=== PATIENT | male | born 1960 | race Caucasian/White ===

== ENCOUNTER 2016-12-17 01:10 | Inpatient (IN) | payer MEDICAID, OTHER ==
[~2016-12-17] VITALS: Ht 175.3 cm; Wt 68.9 kg
[~2016-12-17 01:10] MED LIST: FOLI1TAB2 PO; MULT1TAB10 PO; NICO14PA TD; OXAZ15CA PO; THIA100TA PO
[2016-12-17] MEDS ORDERED: CELE10TA PO (01:48)
[2016-12-17] MEDS ORDERED: BUPR15TA PO (01:48)
[2016-12-17 02:47] LABS: MEAN CORPUSCULAR HEMOGLOBIN 30.1 pg (27.0-33.0); MEAN CORPUSCULAR HGB CONC 34.3 g/dl (32.0-36.5); MEAN CORPUSCULAR VOLUME 87.7 fl (80.0-96.0); RED CELL DISTRIBUTION WIDTH 12.4 % (11.5-14.5); WHITE BLOOD COUNT 4.9 K/mm3 (4.0-10.0)
[2016-12-17 03:06] LABS: METHADONE URINE NEGATIVE (NEGATIVE)
[2016-12-17 03:15] LABS: ALBUMIN/GLOBULIN RATIO 1.33 (1.00-1.93); ALKALINE PHOSPHATASE 95 U/L (45-117); ALT/SGPT 64 U/L (12-78); ANION GAP 13 MEQ/L (8-16); AST/SGOT 49 U/L (15-37); BILIRUBIN,DIRECT 0.1 MG/DL (0.0-0.2); BILIRUBIN,TOTAL 0.3 MG/DL (0.2-1.0); BLOOD UREA NITROGEN 6 MG/DL (7-18); CALCIUM LEVEL 8.1 MG/DL (8.5-10.1); CARBON DIOXIDE LEVEL 27 MEQ/L (21-32); CHLORIDE LEVEL 105 MEQ/L (98-107); GLOMERULAR FILTRATION RATE > 60.0 (>56); GLUCOSE, FASTING 88 MG/DL (70-105); POTASSIUM SERUM 3.8 MEQ/L (3.5-5.1); SODIUM LEVEL 145 MEQ/L (136-145)
[2016-12-17] MEDS ORDERED: OXAZEPAM 15 MG CAP PO ONE (12:30)
[2016-12-17] MEDS ORDERED: BUPR150T3 PO (14:46)
[2016-12-17 18:33] VITALS: BP 139/78
[2016-12-17] MEDS ORDERED: MOM 30ML SUSPENSION UDC PO PRN (19:30)
[2016-12-17] MEDS ORDERED: MAALOX 30 ML SUSP *UDC PO PRN (19:30)
[2016-12-17] MEDS: THIAMINE 100 MG TAB PO SCH (21:29)
[2016-12-17] MEDS: buPROPion **XL** TABLET 150MG (WELLBUTRIN XL) PO SCH (21:29)
[2016-12-18 06:41] VITALS: BP 144/88
[2016-12-18] MEDS: FOLIC ACID 1 MG TAB PO SCH (08:44)
[2016-12-18] MEDS: CitaloPRAM (CeleXA) 20 MG TAB PO SCH (08:44)
[2016-12-18] MEDS: MULTIVITAMINS/MINERALS THERAP 1 TAB PO SCH (08:44)
[2016-12-18] MEDS: NICOTINE 21MG/24HR 1 EA TRANSDERMAL TD SCH (08:44)
[2016-12-18] MEDS: THIAMINE 100 MG TAB PO SCH ×2 (08:44→20:41)
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
[2016-12-18 14:55] VITALS: BP 166/84
[2016-12-18] MEDS: LORazepam 2 MG TAB PO PRN ×2 (14:58→21:05)
[2016-12-18 18:18] VITALS: BP 140/82
[2016-12-18] MEDS: buPROPion **XL** TABLET 150MG (WELLBUTRIN XL) PO SCH (20:41)
[2016-12-18 21:00] VITALS: BP 138/93
[2016-12-19 06:18] VITALS: BP 153/86
--- NOTE | 2016-12-19 07:17 | ECGEPIP ---
Stationary ECG Study [facility] Test Date: 2016-12-18 Pat Name: CODY JONES Department: Room: [place] [address] Gender: M [employer] Driver: DEBBIE : 1960 Requested By: Katelyn Mckeon Order Number: [id number] Reading MD: Tao Fenotn Measurements Intervals [place] Rate: 81 P: 77 IA: 129 QRS: 78 QRSD: 78 T: 82 QT: 363 QTc: 423 Interpretive Statements Normal sinus rhythm Incomplete right bundle branch block No significant change when compared to prior tracing of 07/14/2016 Electronically Signed On 12-19-2016 7:16:50 EDT by Tao Fenton
[2016-12-19 07:33] LABS: ALBUMIN 3.5 GM/DL (3.2-5.2); ALKALINE PHOSPHATASE 83 U/L (45-117); ALT/SGPT 42 U/L (12-78); ANION GAP 4 MEQ/L (8-16); AST/SGOT 24 U/L (15-37); BILIRUBIN,TOTAL 0.9 MG/DL (0.2-1.0); BLOOD UREA NITROGEN 16 MG/DL (7-18); CALCIUM LEVEL 8.8 MG/DL (8.5-10.1); CARBON DIOXIDE LEVEL 31 MEQ/L (21-32); CHLORIDE LEVEL 105 MEQ/L (98-107); CREATININE FOR GFR 0.76 MG/DL (0.70-1.30); GLOMERULAR FILTRATION RATE > 60.0 (>56); GLUCOSE, FASTING 94 MG/DL (70-105); SODIUM LEVEL 140 MEQ/L (136-145); TOTAL PROTEIN 6.2 GM/DL (6.4-8.2)
[2016-12-19] MEDS: CitaloPRAM (CeleXA) 20 MG TAB PO SCH (08:47)
[2016-12-19] MEDS: FOLIC ACID 1 MG TAB PO SCH (08:47)
[2016-12-19] MEDS: MULTIVITAMINS/MINERALS THERAP 1 TAB PO SCH (08:47)
[2016-12-19] MEDS: THIAMINE 100 MG TAB PO SCH ×2 (08:47→21:33)
[2016-12-19] MEDS: NICOTINE 21MG/24HR 1 EA TRANSDERMAL TD SCH (08:47)
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
[2016-12-19 18:00] VITALS: BP 144/74
[2016-12-19] MEDS: traZODone 50 MG TAB PO PRN (21:33)
[2016-12-19] MEDS: buPROPion **XL** TABLET 150MG (WELLBUTRIN XL) PO SCH (21:33)
[2016-12-20 06:15] VITALS: BP 138/78
[2016-12-20] MEDS: FOLIC ACID 1 MG TAB PO SCH (08:16)
[2016-12-20] MEDS: CitaloPRAM (CeleXA) 20 MG TAB PO SCH (08:16)
[2016-12-20] MEDS: MULTIVITAMINS/MINERALS THERAP 1 TAB PO SCH (08:16)
[2016-12-20] MEDS: THIAMINE 100 MG TAB PO SCH (08:16)
[2016-12-20] MEDS: NICOTINE 21MG/24HR 1 EA TRANSDERMAL TD SCH (08:16)
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
[2016-12-20 18:00] VITALS: BP 132/73
[2016-12-20] MEDS: traZODone 50 MG TAB PO PRN (21:38)
[2016-12-20] MEDS: buPROPion **XL** TABLET 150MG (WELLBUTRIN XL) PO SCH (21:38)
[2016-12-21 06:31] VITALS: BP 120/67
[2016-12-21 09:00] VITALS: BP 126/70
[2016-12-21] MEDS: FOLIC ACID 1 MG TAB PO SCH (09:09)
[2016-12-21] MEDS: CitaloPRAM (CeleXA) 20 MG TAB PO SCH (09:09)
[2016-12-21] MEDS: NICOTINE 21MG/24HR 1 EA TRANSDERMAL TD SCH (09:09)
[2016-12-21] MEDS: MULTIVITAMINS/MINERALS THERAP 1 TAB PO SCH (09:09)
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
[2016-12-21] MEDS: buPROPion **XL** TABLET 150MG (WELLBUTRIN XL) PO SCH (21:40)
[2016-12-21] MEDS: traZODone 50 MG TAB PO PRN (21:57)
[2016-12-22 06:29] VITALS: BP 127/102
[2016-12-22 06:34] VITALS: BP 127/62
[2016-12-22] MEDS: NICOTINE 21MG/24HR 1 EA TRANSDERMAL TD SCH (08:26)
[2016-12-22] MEDS: FOLIC ACID 1 MG TAB PO SCH (08:26)
[2016-12-22] MEDS: MULTIVITAMINS/MINERALS THERAP 1 TAB PO SCH (08:27)
[2016-12-22] MEDS: CitaloPRAM (CeleXA) 20 MG TAB PO SCH (08:27)
[2016-12-22 18:00] VITALS: BP 118/63
[2016-12-22 21:00] VITALS: BP 120/72
[2016-12-22] MEDS: buPROPion **XL** TABLET 150MG (WELLBUTRIN XL) PO SCH (21:41)
[2016-12-22] MEDS: traZODone 50 MG TAB PO PRN (21:42)
[2016-12-23 06:34] VITALS: BP 112/57
[2016-12-23] MEDS: MULTIVITAMINS/MINERALS THERAP 1 TAB PO SCH (09:08)
[2016-12-23] MEDS: FOLIC ACID 1 MG TAB PO SCH (09:08)
[2016-12-23] MEDS: NICOTINE 21MG/24HR 1 EA TRANSDERMAL TD SCH (09:08)
[2016-12-23] MEDS: CitaloPRAM (CeleXA) 20 MG TAB PO SCH (09:09)
[2016-12-23 11:49] VITALS: BP 119/65
[2016-12-23 18:00] VITALS: BP 112/69
[2016-12-23] MEDS: buPROPion **XL** TABLET 150MG (WELLBUTRIN XL) PO SCH (21:46)
[2016-12-23] MEDS: traZODone 50 MG TAB PO PRN (21:46)
[2016-12-24 06:45] VITALS: BP 115/70
[2016-12-24] MEDS: MULTIVITAMINS/MINERALS THERAP 1 TAB PO SCH (08:47)
[2016-12-24] MEDS: FOLIC ACID 1 MG TAB PO SCH (08:47)
[2016-12-24] MEDS: NICOTINE 21MG/24HR 1 EA TRANSDERMAL TD SCH (08:47)
[2016-12-24] MEDS: CitaloPRAM (CeleXA) 20 MG TAB PO SCH (08:47)
[2016-12-24 10:08] VITALS: BP 115/70
[2016-12-24] MEDS: TRIAMCINOLONE ACET 0.1% CREAM 80 GM TOP SCH ×2 (10:10→21:09)
[2016-12-24] MEDS: IBUPROFEN 400 MG TAB PO PRN (11:50)
[2016-12-24 12:02] VITALS: BP 123/71
[2016-12-24] MEDS ORDERED: CitaloPRAM (CeleXA) 10 MG TABLET PO ONE (14:15)
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
[2016-12-24 18:00] VITALS: BP 130/77
[2016-12-24] MEDS: buPROPion **XL** TABLET 150MG (WELLBUTRIN XL) PO SCH (21:09)
[2016-12-24] MEDS: traZODone 50 MG TAB PO PRN (21:10)
[2016-12-25 06:13] VITALS: BP 122/56
[2016-12-25] MEDS: CitaloPRAM (CeleXA) 10 MG TABLET PO SCH (08:44)
[2016-12-25] MEDS: MULTIVITAMINS/MINERALS THERAP 1 TAB PO SCH (08:44)
[2016-12-25] MEDS: FOLIC ACID 1 MG TAB PO SCH (08:44)
[2016-12-25] MEDS: TRIAMCINOLONE ACET 0.1% CREAM 80 GM TOP SCH ×2 (08:45→20:34)
[2016-12-25] MEDS: NICOTINE 21MG/24HR 1 EA TRANSDERMAL TD SCH (08:46)
[2016-12-25 12:00] VITALS: BP 120/70
[2016-12-25] MEDS ORDERED: BUPR150T3 PO (15:26)
[2016-12-25] MEDS ORDERED: CELE10TA PO (15:26)
[2016-12-25] MEDS ORDERED: TRAZO50TA PO (15:26)
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
[2016-12-25 18:00] VITALS: BP 117/67
[2016-12-25] MEDS: IBUPROFEN 400 MG TAB PO PRN (19:02)
[2016-12-25] MEDS: buPROPion **XL** TABLET 150MG (WELLBUTRIN XL) PO SCH (20:32)
[2016-12-25] MEDS: traZODone 50 MG TAB PO PRN (22:43)
[2016-12-26 06:14] VITALS: BP 109/59
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
[2016-12-26] MEDS: NICOTINE 21MG/24HR 1 EA TRANSDERMAL TD SCH (09:00)
[2016-12-26] MEDS: CitaloPRAM (CeleXA) 10 MG TABLET PO SCH (09:51)
[2016-12-26] MEDS: TRIAMCINOLONE ACET 0.1% CREAM 80 GM TOP SCH (09:51)
[2016-12-26] MEDS: MULTIVITAMINS/MINERALS THERAP 1 TAB PO SCH (09:52)
[2016-12-26] MEDS: FOLIC ACID 1 MG TAB PO SCH (09:52)
[2016-12-26] MEDS ORDERED: TRIA1CR80 TOP (10:56)
[2016-12-26] MEDS ORDERED: ADVI200C5 PO (10:58)
[2016-12-26] MEDS ORDERED: WELLTAB38 PO (11:43)
[2016-12-26] MEDS ORDERED: CELE10TA PO (11:45)
[2016-12-26] MEDS ORDERED: TRAZ100T4 PO (11:48)
== END 2016-12-26 12:15 | disposition home or self-care (01) | DRG 754 ==
LOC: EDBD 01:10 → M ED 11:06 → M ED INP 14:27 → M PSY 18:27
PROVIDERS: ADMIT Psychiatry & Neurology Psychiatry; ATTEND Psychiatry & Neurology Psychiatry
DX: F32.9 Major depressive disorder, single episode, unspecified (principal); Z91.14 Patient's other noncompliance with medication regimen; F41.9 Anxiety disorder, unspecified; F10.20 Alcohol dependence, uncomplicated; H54.8 Legal blindness, as defined in USA; Z91.013 Allergy to seafood; Z79.899 Other long term (current) drug therapy; Z63.0 Problems in relationship with spouse or partner

== ENCOUNTER 2017-03-15 19:04 | Inpatient (IN) | payer MEDICAID, OTHER ==
[~2017-03-15] VITALS: Ht 170.2 cm; Wt 73.6 kg
[~2017-03-15 19:04] MED LIST changes: +ADVI200C5 PO; +BUPR150T3 PO; +BUPR15TA PO; +CELE10TA PO; -FOLI1TAB2 PO; +FOLI1TAB4 PO; -OXAZ15CA PO; +OXAZ15CA4 PO; +TRAZ-136 PO; +TRAZO50TA PO; +TRIA1CR80 TOP; +WELLTAB38 PO
[2017-03-15 21:48] LABS: MEAN CORPUSCULAR HEMOGLOBIN 32.3 pg (27.0-33.0); MEAN CORPUSCULAR VOLUME 95.1 fl (80.0-96.0); RED CELL DISTRIBUTION WIDTH 15.7 % (11.5-14.5); WHITE BLOOD COUNT 2.8 K/mm3 (4.0-10.0)
[2017-03-15 22:04] LABS: METHADONE URINE NEGATIVE (NEGATIVE)
[2017-03-15 22:40] LABS: ALBUMIN 3.3 GM/DL (3.2-5.2); ALBUMIN/GLOBULIN RATIO 1.14 (1.00-1.93); ALKALINE PHOSPHATASE 178 U/L (45-117); ALT/SGPT 40 U/L (12-78); ANION GAP 11 MEQ/L (8-16); AST/SGOT 53 U/L (15-37); BILIRUBIN,DIRECT 0.1 MG/DL (0.0-0.2); BILIRUBIN,TOTAL 0.4 MG/DL (0.2-1.0); BLOOD UREA NITROGEN 6 MG/DL (7-18); CALCIUM LEVEL 7.8 MG/DL (8.5-10.1); CARBON DIOXIDE LEVEL 27 MEQ/L (21-32); CHLORIDE LEVEL 109 MEQ/L (98-107); CREATININE FOR GFR 0.75 MG/DL (0.70-1.30); GLOMERULAR FILTRATION RATE > 60.0 (>56); GLUCOSE, FASTING 134 MG/DL (70-105); POTASSIUM SERUM 3.4 MEQ/L (3.5-5.1); SODIUM LEVEL 147 MEQ/L (136-145); TOTAL PROTEIN 6.2 GM/DL (6.4-8.2)
[2017-03-15] MEDS ORDERED: POTASSIUM CHLORIDE 10 MEQ SR TABLET PO ONE (23:30)
[2017-03-16] MEDS ORDERED: OXAZEPAM 15 MG CAP PO ONE ×2 (10:30→15:30)
[2017-03-16] MEDS ORDERED: VITMTA PO (11:08)
--- NOTE | 2017-03-16 16:39 | ECGEPIP ---
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
[2017-03-16] MEDS ORDERED: SERTRALINE HCL 50 MG TAB PO SCH (21:00)
[2017-03-16] MEDS ORDERED: traZODone 50 MG TAB PO PRN (22:30)
[2017-03-16] MEDS ORDERED: ACETAMINOPHEN TAB 650MG DOSE (2X325MG) PO PRN (22:30)
[2017-03-16] MEDS ORDERED: MOM 30ML SUSPENSION UDC PO PRN (22:30)
[2017-03-16 23:15] VITALS: BP 173/95
[2017-03-16] MEDS ORDERED: hydrOXYzine 50 MG TAB PO PRN (23:15)
[2017-03-17] VITALS (7 sets, daily range): BP systolic 152–173; BP diastolic 78–95
[2017-03-17] MEDS: THIAMINE 100 MG TAB PO SCH ×3 (00:27→21:11)
[2017-03-17] MEDS: LORazepam 2 MG TAB PO PRN ×3 (00:27→16:20)
[2017-03-17] MEDS: MULTIVITAMINS/MINERALS THERAP 1 TAB PO SCH (09:37)
[2017-03-17] MEDS: FOLIC ACID 1 MG TAB PO SCH (09:37)
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
[2017-03-17] MEDS ORDERED: buPROPion **XL** TABLET 150MG (WELLBUTRIN XL) PO SCH (21:00)
[2017-03-18] VITALS (7 sets, daily range): BP systolic 135–172; BP diastolic 62–85
[2017-03-18] MEDS: LORazepam 2 MG TAB PO PRN (06:11)
[2017-03-18 07:22] LABS: BASO % 0.5 % (0.0-1.0); EOS # 0.1 K/mm3 (0.0-0.50); EOS % 1.3 % (0.0-3.0); LARGE UNSTAINED CELL # 0.1 K/mm3 (0.0-0.4); LYMPH # 1.1 K/mm3 (1.5-4.5); LYMPH % 21.4 % (24.0-44.0); MEAN CORPUSCULAR HEMOGLOBIN 32.1 pg (27.0-33.0); MEAN CORPUSCULAR HGB CONC 33.4 g/dl (32.0-36.5); MEAN CORPUSCULAR VOLUME 96.3 fl (80.0-96.0); MONO # 0.3 K/mm3 (0.0-0.8); MONO % 6.5 % (0.0-5.0); NEUTROPHILS # 3.6 K/mm3 (1.8-7.7); NEUTROPHILS % 68.4 % (36.0-66.0); PLATELET COUNT, AUTOMATED 156 k/mm3 (150-450); RED CELL DISTRIBUTION WIDTH 14.7 % (11.5-14.5); WHITE BLOOD COUNT 5.3 K/mm3 (4.0-10.0)
[2017-03-18 07:41] LABS: ALBUMIN 3.2 GM/DL (3.2-5.2); ALBUMIN/GLOBULIN RATIO 1.14 (1.00-1.93); ALKALINE PHOSPHATASE 134 U/L (45-117); ALT/SGPT 23 U/L (12-78); ANION GAP 7 MEQ/L (8-16); AST/SGOT 23 U/L (15-37); BILIRUBIN,TOTAL 0.7 MG/DL (0.2-1.0); BLOOD UREA NITROGEN 10 MG/DL (7-18); CALCIUM LEVEL 8.4 MG/DL (8.5-10.1); CARBON DIOXIDE LEVEL 28 MEQ/L (21-32); CHLORIDE LEVEL 101 MEQ/L (98-107); CREATININE FOR GFR 0.62 MG/DL (0.70-1.30); GLOMERULAR FILTRATION RATE > 60.0 (>56); GLUCOSE, FASTING 139 MG/DL (70-105); POTASSIUM SERUM 3.7 MEQ/L (3.5-5.1); SODIUM LEVEL 136 MEQ/L (136-145)
[2017-03-18] MEDS: CitaloPRAM (CeleXA) 10 MG TABLET PO SCH (09:23)
[2017-03-18] MEDS: FOLIC ACID 1 MG TAB PO SCH (09:24)
[2017-03-18] MEDS: MULTIVITAMINS/MINERALS THERAP 1 TAB PO SCH (09:24)
[2017-03-18] MEDS: THIAMINE 100 MG TAB PO SCH ×2 (09:24→20:05)
[2017-03-18] MEDS ORDERED: chlordiazePOXIDE 25 MG CAP PO PRN (10:30)
[2017-03-18] MEDS: chlordiazePOXIDE 25 MG CAP PO SCH ×3 (11:00→20:06)
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
--- NOTE | 2017-03-18 18:17 | IPN ---
DATE: 03/18/2017 56-year-old male with history of depression and alcohol dependency admitted for worsening depression and suicidal ideation. SUBJECTIVE: "I am very shaky and withdrawing." OBJECTIVE: The patient is experiencing withdrawal alcohol. The patient continues to be depressed and anxious. Says he has not been able to sleep at night. No evidence of psychotic symptoms. No auditory or visual hallucinations or delusions. MENTAL STATUS EXAMINATION: The patient is dressed in [facility]. The patient is partially cooperative. The patient has poor eye contact. Speech is slow and monotone. Mood is depressed and anxious. Affect is restricted and labile. No delusions or hallucinations. Memory, attention and concentration are impaired. The patient is reporting withdrawal symptoms from alcohol. Insight and judgment is poor. ASSESSMENT: 1. Alcohol dependency. 2. Alcohol withdrawal. 3. Depression. 4. Suicidal ideation. PLAN: 1. Discontinue Ativan. Start Librium 50 mg by mouth three times a day, plus as needed for alcohol withdrawal. 2. Continue thiamine, multivitamins and folic acid as per detox protocol. 3. Continue with Celexa 30 mg by mouth every morning. 4. Start trazodone 100 mg by mouth at bedtime (q.h.s.). 5. Continue medication management, individual and group therapy.
[2017-03-18] MEDS ORDERED: traZODone 100 MG TAB PO SCH (21:00)
[2017-03-19 06:33] VITALS: BP 130/74
[2017-03-19] MEDS: CitaloPRAM (CeleXA) 10 MG TABLET PO SCH (08:18)
[2017-03-19] MEDS: FOLIC ACID 1 MG TAB PO SCH (08:18)
[2017-03-19] MEDS: MULTIVITAMINS/MINERALS THERAP 1 TAB PO SCH (08:18)
[2017-03-19] MEDS: chlordiazePOXIDE 25 MG CAP PO SCH ×3 (08:18→20:41)
[2017-03-19] MEDS: THIAMINE 100 MG TAB PO SCH (08:18)
[2017-03-19 11:39] VITALS: BP 128/86
--- NOTE | 2017-03-19 16:16 | IPN ---
DATE: 03/19/2017 56-year-old male with history of depression and alcohol dependency admitted for significant symptoms of depression and suicidal ideation. SUBJECTIVE: "I cannot sleep at night." OBJECTIVE: Patient continues experiencing some alcohol withdrawal. Patient took a total of 400 mg of Librium yesterday to control the symptoms. Today he is less shaky. Patient is somewhat angry and frustrated. Patient is interacting very little with other patients and has a tendency to stay in the room. MENTAL STATUS EXAMINATION: Patient is dressed in [facility]. Patient was frustrated and angry. Poor eye contact. Speech is slow and monotone. Mood is depressed and anxious. Affect is restricted. No delusions or hallucinations. Memory, attention, and concentration are impaired. Patient continues to report withdrawal symptoms from alcohol. Insight and judgment is poor. ASSESSMENT: 1. Alcohol dependency. 2. Alcohol withdrawal. 3. Depression. 4. Suicidal ideation. PLAN: 1. Continue with Librium 50 mg by mouth three times a day plus as needed. 2. Continue thiamine, multivitamin, and folic acid as per detoxification protocol. 3. Continue Celexa 30 mg by mouth every morning. 4. Increase trazodone to 150 mg by mouth nightly. 5. Continue medication management, individual and group therapy.
[2017-03-19 18:19] VITALS: BP 114/61
[2017-03-19] MEDS: traZODone 50 MG TAB PO SCH (20:41)
[2017-03-20 06:34] VITALS: BP 116/57
[2017-03-20] MEDS: FOLIC ACID 1 MG TAB PO SCH (09:10)
[2017-03-20] MEDS: CitaloPRAM (CeleXA) 10 MG TABLET PO SCH (09:10)
[2017-03-20] MEDS: THIAMINE 100 MG TAB PO SCH (09:10)
[2017-03-20] MEDS: MULTIVITAMINS/MINERALS THERAP 1 TAB PO SCH (09:10)
[2017-03-20] MEDS: chlordiazePOXIDE 25 MG CAP PO SCH ×3 (09:10→21:03)
[2017-03-20 12:10] VITALS: BP 102/58
[2017-03-20 18:14] VITALS: BP 110/58
--- NOTE | 2017-03-20 19:00 | IPN ---
DATE: 03/20/2017 A 56-year-old male with a history of depression and alcohol dependency, admitted for suicidal ideation and significant symptoms of depression. SUBJECTIVE: "I'm still shaken up." OBJECTIVE: Patient is improving very slowly. His symptoms of alcohol withdrawal have been decreasing slowly with the help of Librium. Patient is able to sleep better with the increase of trazodone. No evidence of psychotic symptoms. Patient is irritable in the morning. MENTAL STATUS EXAMINATION: Patient dressed in [facility]. Patient continues somewhat angry and frustrated. Has poor eye contact. Speech is slow and monotone. Mood is depressed and anxious. Affect is restricted. No delusions or hallucinations. Memory, attention, and concentration are impaired. Patient continues to report withdrawal symptoms from alcohol. Insight and judgment are poor. ASSESSMENT: 1. Alcohol dependency. 2. Alcohol withdrawal. 3. Depression. 4. Suicidal ideation. PLAN: 1. Decrease Librium to 25 mg by mouth three times a day. 2. Continue thiamine, multivitamin, folic acid per detoxification protocol. 3. Continue Celexa 30 mg by mouth every morning. 4. Continue trazodone 150 mg by mouth at bedtime. 5. Continue medication management, individual and group therapy.
[2017-03-20 22:00] VITALS: BP 120/64
[2017-03-20] MEDS: traZODone 50 MG TAB PO SCH (22:45)
[2017-03-21 06:48] VITALS: BP 126/69
[2017-03-21] MEDS: FOLIC ACID 1 MG TAB PO SCH (08:40)
[2017-03-21] MEDS: chlordiazePOXIDE 25 MG CAP PO SCH ×2 (08:40→21:40)
[2017-03-21] MEDS: THIAMINE 100 MG TAB PO SCH (08:40)
[2017-03-21] MEDS: MULTIVITAMINS/MINERALS THERAP 1 TAB PO SCH (08:40)
[2017-03-21] MEDS: CitaloPRAM (CeleXA) 10 MG TABLET PO SCH (08:41)
--- NOTE | 2017-03-21 16:07 | IPN ---
DATE: 03/21/2017 56-year-old male with history of depression and alcohol dependency admitted to our unit for suicidal thoughts and significant symptoms of depression. SUBJECTIVE: "I'm still feeling shaky." OBJECTIVE: Patient was sleeping most of the morning and appears somewhat drowsy, however he continues with generalized tremors secondary to alcohol withdrawal. Patient says that he is sensitive and prone to withdrawal when he stops drinking. Patient has low insight into his chemical dependency. Patient continues depressed with sad, restricted facial expression. Patient is tolerating well the tapering of the Librium and the other psychotropic medications. No evidence of psychotic symptoms. Patient is able to contract for safety while in the hospital. MENTAL STATUS EXAMINATION: Patient is dressed in hospital [facility]. Patient continues somewhat angry and frustrated with limited eye contact. No interaction with other patients and staff. Patient is somewhat drowsy because of the medication, however he continues to have generalized tremor. Speech is slow and monotone. Affect is restricted. No delusions or hallucinations. Memory, attention, and concentration are impaired. Patient is able to contract for safety in our unit. Insight and judgment are poor. ASSESSMENT: 1. Alcohol dependency. 2. Alcohol withdrawal. 3. Depression. 4. Suicidal ideation. PLAN: 1. Decrease Librium to 25 mg by mouth twice a day. 2. Continue with thiamine, multivitamin, and folic acid per detoxification protocol. 3. Continue with Celexa 20 mg by mouth every morning. 4. Continue with trazodone 150 mg by mouth nightly. 5. Continue medication management, individual and group therapy.
[2017-03-21 18:00] VITALS: BP 131/71
[2017-03-21] MEDS: traZODone 50 MG TAB PO SCH (21:40)
[2017-03-22 06:00] VITALS: BP 133/76
[2017-03-22] MEDS: MULTIVITAMINS/MINERALS THERAP 1 TAB PO SCH (08:27)
[2017-03-22] MEDS: THIAMINE 100 MG TAB PO SCH (08:28)
[2017-03-22] MEDS: FOLIC ACID 1 MG TAB PO SCH (08:28)
[2017-03-22] MEDS: chlordiazePOXIDE 25 MG CAP PO SCH ×2 (08:28→21:06)
[2017-03-22] MEDS: CitaloPRAM (CeleXA) 10 MG TABLET PO SCH (08:29)
--- NOTE | 2017-03-22 15:44 | IPN ---
DATE: 03/22/2017 A 56-year-old male with history of depression and alcohol dependency, admitted to our unit for suicidal thoughts and significant symptoms of depression. SUBJECTIVE: "I could sleep better last night." OBJECTIVE: The patient continues somewhat confused for the amount of benzodiazepine that he is receiving; however, the tapering of Librium had to be very slow because of significant symptoms of withdrawal with tremors and altered vital signs. The patient is reporting depression, has psychomotor retardation, sad, restricted facial expression. The patient has very little interaction with other patients and staff, and has tendency to stay in his room most of the day. MENTAL STATUS EXAMINATION: The patient is dressed on [facility]. The patient is cooperative. Has poor eye contact. Speech is slow and monotone. Mood is depressed and anxious. Affect is restricted. No evidence of delusions or hallucinations. Memory, attention and concentration are impaired. Insight and judgment are poor. ASSESSMENT: 1. Depression. 2. Suicidal ideation. 3. Alcohol dependency. 4. Alcohol withdrawal. PLAN: 1. Decrease Librium to 25 mg by mouth at bedtime. 2. Continue thiamine, multivitamin, and folic acid per detox protocol. 3. Continue Celexa 20 mg by mouth every morning. 4. Continue trazodone 150 mg by mouth at bedtime. 5. Continue medication management, individual and group therapy.
[2017-03-22 18:29] VITALS: BP 118/76
[2017-03-22] MEDS: traZODone 50 MG TAB PO SCH (21:05)
[2017-03-23 06:23] VITALS: BP 134/63
[2017-03-23] MEDS: CitaloPRAM (CeleXA) 10 MG TABLET PO SCH (09:31)
[2017-03-23] MEDS: MULTIVITAMINS/MINERALS THERAP 1 TAB PO SCH (09:31)
[2017-03-23] MEDS: FOLIC ACID 1 MG TAB PO SCH (09:31)
[2017-03-23] MEDS: THIAMINE 100 MG TAB PO SCH (09:31)
[2017-03-23 18:00] VITALS: BP 117/61
[2017-03-23] MEDS: traZODone 50 MG TAB PO SCH (21:46)
[2017-03-23] MEDS: chlordiazePOXIDE 25 MG CAP PO SCH (21:46)
[2017-03-24 06:13] VITALS: BP 129/60
[2017-03-24] MEDS: THIAMINE 100 MG TAB PO SCH (08:57)
[2017-03-24] MEDS: CitaloPRAM (CeleXA) 10 MG TABLET PO SCH (08:57)
[2017-03-24] MEDS: FOLIC ACID 1 MG TAB PO SCH (08:57)
[2017-03-24] MEDS: MULTIVITAMINS/MINERALS THERAP 1 TAB PO SCH (08:57)
[2017-03-24] MEDS: POLYVINYL ALCOHOL OPHTH SOLN 15 ML(LIQUITEARS) OU PRN (14:57)
[2017-03-24 18:44] VITALS: BP 129/72
[2017-03-24] MEDS: traZODone 50 MG TAB PO SCH (21:46)
[2017-03-25 06:34] VITALS: BP 131/65
[2017-03-25] MEDS: MULTIVITAMINS/MINERALS THERAP 1 TAB PO SCH (08:41)
[2017-03-25] MEDS: CitaloPRAM (CeleXA) 10 MG TABLET PO SCH (08:41)
[2017-03-25] MEDS: THIAMINE 100 MG TAB PO SCH (08:41)
[2017-03-25] MEDS: FOLIC ACID 1 MG TAB PO SCH (08:41)
[2017-03-25] MEDS: POLYVINYL ALCOHOL OPHTH SOLN 15 ML(LIQUITEARS) OU PRN ×2 (09:27→16:09)
[2017-03-25] MEDS: TRIAMCINOLONE ACET 0.1% OINTMENT 15 GM TOP PRN (16:10)
[2017-03-25 18:12] VITALS: BP 136/65
[2017-03-25] MEDS: traZODone 50 MG TAB PO SCH (21:19)
--- NOTE | 2017-03-25 22:34 | IPN ---
DATE: 03/25/2017 56-year-old male with history of depression and alcohol dependency admitted to our unit for suicidal thoughts and significant symptoms of depression. SUBJECTIVE: "I feel much better." OBJECTIVE: Patient has improved from the withdrawal point of view, he is no longer shaking, he is now almost off the Librium. Patient is interacting with other patients and staff. Patient states that he feels less depressed, is able to contract for safety during the interview. Patient is motivated for treatment and to continue being sober after discharge from the hospital. Patient can now start working on the inpatient treatment program since his withdrawal is almost over. MENTAL STATUS EXAMINATION: Patient is dressed in [facility]. Patient is cooperative. Has fair eye contact. His speech is somewhat slow and monotone. Mood is depressed and anxious, but improved. Affect is somewhat restricted. No evidence of delusions or hallucinations. Memory, attention, and concentration are improving. Insight and judgment is also improved. ASSESSMENT: 1. Depression. 2. Suicidal ideation. 3. Alcohol dependency. PLAN: 1. Continue Celexa 20 mg by mouth every morning. 2. Continue trazodone 150 mg by mouth nightly. 3. Continue thiamine, multivitamin, and folic acid as per detoxification protocol. 4. Continue medication management, individual and group therapy.
[2017-03-26 06:23] VITALS: BP 106/66
[2017-03-26] MEDS: CitaloPRAM (CeleXA) 10 MG TABLET PO SCH (08:18)
[2017-03-26] MEDS: MULTIVITAMINS/MINERALS THERAP 1 TAB PO SCH (08:18)
[2017-03-26] MEDS: THIAMINE 100 MG TAB PO SCH (08:18)
[2017-03-26] MEDS: FOLIC ACID 1 MG TAB PO SCH (08:18)
[2017-03-26] MEDS: POLYVINYL ALCOHOL OPHTH SOLN 15 ML(LIQUITEARS) OU PRN ×2 (08:18→21:21)
[2017-03-26 18:00] VITALS: BP 129/70
[2017-03-26] MEDS: traZODone 50 MG TAB PO SCH (21:21)
[2017-03-27 06:59] VITALS: BP 129/56
[2017-03-27] MEDS: MAALOX 30 ML SUSP *UDC PO PRN ×2 (07:23→11:51)
[2017-03-27] MEDS: CitaloPRAM (CeleXA) 10 MG TABLET PO SCH (08:23)
[2017-03-27] MEDS: TRIAMCINOLONE ACET 0.1% OINTMENT 15 GM TOP PRN (08:23)
[2017-03-27] MEDS: POLYVINYL ALCOHOL OPHTH SOLN 15 ML(LIQUITEARS) OU PRN (08:23)
[2017-03-27] MEDS: FOLIC ACID 1 MG TAB PO SCH (08:23)
[2017-03-27] MEDS: THIAMINE 100 MG TAB PO SCH (08:23)
[2017-03-27] MEDS: MULTIVITAMINS/MINERALS THERAP 1 TAB PO SCH (08:23)
[2017-03-27 18:00] VITALS: BP 136/84
--- NOTE | 2017-03-27 21:52 | IPN ---
DATE: 03/27/2017 56-year-old male with a history of depression, alcohol dependency admitted to our unit for suicidal ideation and significant symptoms of depression. SUBJECTIVE: "I don't feel well today." The patient has significantly improved from his withdrawal symptoms. He is now able to participate in psychotherapeutic activities. The patient reports depression, mood swings and intermittent suicidal thoughts, however, he also agrees that he has improved significantly. The patient continues with low insight into his illness. MENTAL STATUS EXAMINATION: The patient is dressed in [facility]. The patient is cooperative. Has fair eye contact. Speech is soft and monotone. Mood is depressed and anxious today. Affect is restricted. No delusions or hallucinations. Memory, attention and concentration are fair. Insight and judgment limited. ASSESSMENT: 1. Depression. 2. Suicidal ideation. 3. Alcohol dependency. PLAN: 1. Continue Celexa 20 mg by mouth in the morning. 2. Continue trazodone 150 mg by mouth at night. 3. Continue thiamine, multivitamin, and folic acid as per detox protocol. 4. Continue medication management, individual and group therapy.
[2017-03-27] MEDS: traZODone 50 MG TAB PO SCH (22:01)
[2017-03-28 06:28] VITALS: BP 107/57
[2017-03-28] MEDS: THIAMINE 100 MG TAB PO SCH (08:03)
[2017-03-28] MEDS: CitaloPRAM (CeleXA) 10 MG TABLET PO SCH (08:03)
[2017-03-28] MEDS: FOLIC ACID 1 MG TAB PO SCH (08:03)
[2017-03-28] MEDS: MULTIVITAMINS/MINERALS THERAP 1 TAB PO SCH (08:03)
[2017-03-28] MEDS: POLYVINYL ALCOHOL OPHTH SOLN 15 ML(LIQUITEARS) OU PRN (08:05)
[2017-03-28] MEDS: TRIAMCINOLONE ACET 0.1% OINTMENT 15 GM TOP PRN (08:05)
[2017-03-28] MEDS ORDERED: CELE10TA PO (09:24)
[2017-03-28] MEDS ORDERED: TRAZO50TA PO (09:24)
--- NOTE | 2017-05-02 17:25 | MHDS ---
DATE OF ADMISSION: 03/16/2017 DATE OF DISCHARGE: 03/28/2017 LEGAL STATUS AT ADMISSION: 9.39 legal status. HISTORY OF PRESENT ILLNESS: The following information is according to the initial evaluation of Dr. Yang, his progress note and my own progress note. On 02/24/2017, Dr. Yang wrote the patient is a 56-year-old man who presented to [facility] after experiencing increased depression and suicidal thoughts and after he had relapsed on alcohol. He described that after he left the inpatient mental health unit earlier this year that he has been living with his and he became increasingly more depressed and anxious. He described that eventually living with a friend he began to drink and after he lost his job and is now homeless. He described that he lived in the [place], sleeping on a mattress and drinking alcohol to excess. The patient stated that after he had been doing this for eight months he noticed himself becoming increasing more suicidal, he attempted to get help and was brought to the emergency department (ED) for evaluation. It states that he is not taking any psychiatric medication from his previous admission. The patient reported loss of interest, insomnia, guilt, anorexia, depressed mood and suicidal thoughts. Also, he stated that he has high anxiety and has had panic attacks. LABORATORY DATA ON ADMISSION: His CBC was unremarkable except WBC of 2.8 and RDW 15.7. Repeated CBC on 03/18/2017 showed a normalization of the white blood cells and RDW was 14.7. His MCV was 96.3 at that time. CMP showed a sodium of 147, potassium of 3.4, AST of 53, alkaline phosphatase of 178. Repeated CMP on 03/18/2017 showed a normalization of electrolytes and liver function tests. Urine drug screen was negative. Blood alcohol level was 0.38. HOSPITAL COURSE: After the first evaluation, the patient was placed on Clinical [place] Withdrawal Assessment (CIWA) protocol and Ativan. The patient had significant symptoms of alcohol withdrawal. He was switched to Librium 50 mg by mouth three times a day plus as needed. The patient's symptoms of withdrawal improved but those were protracted for several days. The patient was reporting inability to sleep so he was placed on trazodone that needed to be increased up to 150 mg by mouth at bedtime. The patient was showing symptoms of alcohol withdrawal for several days. By the end of the hospitalization, the patient's withdrawal symptoms improved and he started to participate in the psychotherapeutic activities of the unit. The patient is homeless so the sister was contacted to explore if she would be able to help him, but she said that the patient cannot return to live with her so the patient has been referred to [facility]. At the moment of discharge, the patient is in stable condition with no auditory or visual hallucinations or delusions. His mood is euthymic. He is interacting well with other patients and staff. He is able to smile and his mood has significantly improved. He is somewhat more insightful. He intends to remain sober and followup recommendations and appointments, so he is discharged in stable condition on 03/28/2017. At this point, the patient does not have auditory or visual hallucinations, delusions, suicidal or homicidal ideation. MEDICATIONS AT DISCHARGE: - Celexa 30 mg by mouth every morning - trazodone 150 mg by mouth at bedtime MENTAL STATUS EXAMINATION AT DISCHARGE: The patient is dressed in [facility]. The patient is calm and cooperative. Speech is clear, coherent with normal rate and is spontaneous. The patient has fair eye contact. Mood is euthymic. Affect is appropriate and congruent with mood. The patient is oriented to time, place, person and situation, maintains attention and concentration correctly. Instant recall, recent and remote memory are intact. Thought processes are coherent, logical, and goal-directed. The patient does not have auditory or visual hallucinations. The patient does not have paranoid, persecutory, somatic, grandiose or voodoo delusions. The patient is denying suicidal or homicidal ideation. Judgment and insight are fair. DISCHARGE DIAGNOSES: AXIS I: Major depressive disorder, alcohol dependency, substance-induced mood disorder. AXIS II: Deferred. AXIS III: Status post severe alcohol withdrawal. CONDITION AT DISCHARGE: Stable. No suicidal or homicidal ideation. No auditory or visual hallucinations. No delusions. INSTRUCTIONS TO THE PATIENT: The patient is to continue taking his medications as prescribed and followup appointments. He is advised to maintain absolute sobriety from drugs and alcohol. The patient has a scheduled appointment for psychotropic medication management, individual psychotherapy, and primary care provider.
== END 2017-03-28 10:47 | disposition home or self-care (01) | DRG 754 ==
LOC: M ED 22:16 → CANBEDREQ 03-16 12:54 → M ED INP 03-16 22:26 → M PSY 03-16 23:11
PROVIDERS: ADMIT Psychiatry & Neurology Psychiatry; ATTEND Psychiatry & Neurology Psychiatry
DX: F32.9 Major depressive disorder, single episode, unspecified (principal); Z91.14 Patient's other noncompliance with medication regimen; F10.239 Alcohol dependence with withdrawal, unspecified; F17.210 Nicotine dependence, cigarettes, uncomplicated; Z59.0 Homelessness; Z63.5 Disruption of family by separation and divorce; D72.819 Decreased white blood cell count, unspecified; E87.6 Hypokalemia; F10.24 Alcohol dependence with alcohol-induced mood disorder

== ENCOUNTER 2017-06-13 17:24 | Inpatient (IN) | payer OTHER ==
[~2017-06-13] VITALS: Ht 167.6 cm; Wt 67.0 kg
[~2017-06-13 17:24] MED LIST changes: +VITMTA PO
[2017-06-13 18:24] LABS: MEAN CORPUSCULAR HEMOGLOBIN 32.7 pg (27.0-33.0); MEAN CORPUSCULAR HGB CONC 34.7 g/dl (32.0-36.5); MEAN CORPUSCULAR VOLUME 94.4 fl (80.0-96.0); RED CELL DISTRIBUTION WIDTH 14.5 % (11.5-14.5); WHITE BLOOD COUNT 6.5 K/mm3 (4.0-10.0)
[2017-06-13 18:40] LABS: ALBUMIN 3.9 GM/DL (3.2-5.2); ALBUMIN/GLOBULIN RATIO 1.18 (1.00-1.93); ALKALINE PHOSPHATASE 64 U/L (45-117); ALT/SGPT 28 U/L (12-78); ANION GAP 7 MEQ/L (8-16); AST/SGOT 39 U/L (15-37); BILIRUBIN,DIRECT 0.2 MG/DL (0.0-0.2); BILIRUBIN,TOTAL 0.7 MG/DL (0.2-1.0); BLOOD UREA NITROGEN 8 MG/DL (7-18); CALCIUM LEVEL 7.9 MG/DL (8.5-10.1); CARBON DIOXIDE LEVEL 27 MEQ/L (21-32); CHLORIDE LEVEL 106 MEQ/L (98-107); CREATININE FOR GFR 0.73 MG/DL (0.70-1.30); GLOMERULAR FILTRATION RATE > 60.0 (>56); GLUCOSE, FASTING 77 MG/DL (70-105); POTASSIUM SERUM 3.8 MEQ/L (3.5-5.1); SODIUM LEVEL 140 MEQ/L (136-145); TOTAL PROTEIN 7.2 GM/DL (6.4-8.2)
[2017-06-13 19:47] LABS: METHADONE URINE NEGATIVE (NEGATIVE)
[2017-06-14] MEDS ORDERED: MAALOX 30 ML SUSP *UDC PO PRN (14:00)
[2017-06-14] MEDS ORDERED: traZODone 50 MG TAB PO PRN (14:00)
[2017-06-14] MEDS ORDERED: ACETAMINOPHEN TAB 650MG DOSE (2X325MG) PO PRN (14:00)
[2017-06-14] MEDS ORDERED: MOM 30ML SUSPENSION UDC PO PRN (14:00)
[2017-06-14] MEDS ORDERED: OXAZEPAM 15 MG CAP PO ONE (14:30)
[2017-06-14 15:52] VITALS: BP 161/84
[2017-06-14] MEDS ORDERED: LORazepam 2 MG TAB PO PRN (16:45)
[2017-06-14] MEDS ORDERED: THIAMINE 100 MG TAB PO ONE (17:00)
--- NOTE | 2017-06-14 19:23 | REP ---
CHEST, TWO VIEWS: There is no evidence of acute infiltrate. No pleural effusion is seen. The heart is normal in size. The mediastinal silhouette is unremarkable. The visualized osseous structures are intact. IMPRESSION: No acute pulmonary disease. Signed by Rogelio Wang MD 06/14/2017 07:27 P
[2017-06-15 07:13] LABS: ALBUMIN 3.6 GM/DL (3.2-5.2); ALBUMIN/GLOBULIN RATIO 1.24 (1.00-1.93); ALKALINE PHOSPHATASE 59 U/L (45-117); ALT/SGPT 25 U/L (12-78); ANION GAP 5 MEQ/L (8-16); AST/SGOT 20 U/L (15-37); CALCIUM LEVEL 8.8 MG/DL (8.5-10.1); CARBON DIOXIDE LEVEL 32 MEQ/L (21-32); CHLORIDE LEVEL 104 MEQ/L (98-107); CREATININE FOR GFR 0.71 MG/DL (0.70-1.30); GLOMERULAR FILTRATION RATE > 60.0 (>56); GLUCOSE, FASTING 103 MG/DL (70-105); POTASSIUM SERUM 4.4 MEQ/L (3.5-5.1); SODIUM LEVEL 141 MEQ/L (136-145); TOTAL PROTEIN 6.5 GM/DL (6.4-8.2)
[2017-06-15 07:14] VITALS: BP 153/74
[2017-06-15 07:41] LABS: BILIRUBIN,TOTAL 1.7 MG/DL (0.2-1.0)
[2017-06-15 07:42] LABS: BLOOD UREA NITROGEN 15 MG/DL (7-18)
[2017-06-15 08:19] VITALS: BP 153/74
[2017-06-15] MEDS ORDERED: TRIAMCINOLONE ACET 0.1% CREAM 80 GM TOP PRN (09:00)
[2017-06-15] MEDS: THIAMINE 100 MG TAB PO SCH ×2 (09:11→21:02)
[2017-06-15] MEDS: MULTIVITAMINS/MINERALS THERAP 1 TAB PO SCH (09:11)
[2017-06-15] MEDS: FOLIC ACID 1 MG TAB PO SCH (09:11)
[2017-06-15] MEDS: NICOTINE 21MG/24HR 1 EA TRANSDERMAL TD SCH (09:11)
[2017-06-15] MEDS: CitaloPRAM (CeleXA) 20 MG TAB PO SCH (09:12)
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
[2017-06-15 11:56] VITALS: BP 148/96
[2017-06-15 18:23] VITALS: BP 136/68
[2017-06-15 19:30] VITALS: BP 136/68
[2017-06-16 06:31] VITALS: BP 106/68
[2017-06-16 07:32] LABS: ALBUMIN 3.6 GM/DL (3.2-5.2); ALBUMIN/GLOBULIN RATIO 1.24 (1.00-1.93); ALKALINE PHOSPHATASE 55 U/L (45-117); ALT/SGPT 23 U/L (12-78); ANION GAP 8 MEQ/L (8-16); AST/SGOT 20 U/L (15-37); BILIRUBIN,TOTAL 1.3 MG/DL (0.2-1.0); BLOOD UREA NITROGEN 12 MG/DL (7-18); CALCIUM LEVEL 8.3 MG/DL (8.5-10.1); CARBON DIOXIDE LEVEL 29 MEQ/L (21-32); CHLORIDE LEVEL 105 MEQ/L (98-107); CREATININE FOR GFR 0.71 MG/DL (0.70-1.30); GLOMERULAR FILTRATION RATE > 60.0 (>56); GLUCOSE, FASTING 96 MG/DL (70-105); POTASSIUM SERUM 4.2 MEQ/L (3.5-5.1); SODIUM LEVEL 142 MEQ/L (136-145); TOTAL PROTEIN 6.5 GM/DL (6.4-8.2)
[2017-06-16 08:44] VITALS: BP 110/72
[2017-06-16] MEDS: THIAMINE 100 MG TAB PO SCH ×2 (08:47→20:57)
[2017-06-16] MEDS: NICOTINE 21MG/24HR 1 EA TRANSDERMAL TD SCH (08:47)
[2017-06-16] MEDS: MULTIVITAMINS/MINERALS THERAP 1 TAB PO SCH (08:47)
[2017-06-16] MEDS: FOLIC ACID 1 MG TAB PO SCH (08:47)
[2017-06-16] MEDS: CitaloPRAM (CeleXA) 20 MG TAB PO SCH (08:47)
[2017-06-16 12:07] VITALS: BP 131/67
--- NOTE | 2017-06-16 13:23 | IPN ---
DATE: 06/16/2017 Mr. Holloway states that he thinks his detox is over. He is confirmed about his eye redness. He still feels a little sweaty. He is planning outpatient treatment with Sheryl and also a living situation with Myla [facility]ers of the [facility] adult [facility]. MENTAL STATUS EXAMINATION: No disturbance of speech. No disturbance of thought process. No loose associations. No abnormal or psychotic thoughts. Judgment and insight are fair. Fully oriented. Recent and remote memory intact. Attention and concentration are normal. No disturbance of language. Full fund of knowledge. Mood is good. Affect is bright. Medications at this time include citalopram 40 mg. TREATMENT PLAN: Outpatient followup and evaluation for choice of alcohol and rehabilitation. Clarify living situation. Diagnoses: 1. Major depression. 2. Alcohol dependence.
[2017-06-16 18:44] VITALS: BP 123/70
[2017-06-16 20:00] VITALS: BP 130/72
[2017-06-16] MEDS: POLYVINYL ALCOHOL OPHTH SOLN 15 ML(LIQUITEARS) OU PRN (20:58)
[2017-06-16 23:14] VITALS: BP 123/70
[2017-06-17 06:44] VITALS: BP 137/72
[2017-06-17] MEDS: FOLIC ACID 1 MG TAB PO SCH (07:55)
[2017-06-17] MEDS: THIAMINE 100 MG TAB PO SCH (07:55)
[2017-06-17] MEDS: MULTIVITAMINS/MINERALS THERAP 1 TAB PO SCH (07:55)
[2017-06-17] MEDS: NICOTINE 21MG/24HR 1 EA TRANSDERMAL TD SCH (07:55)
[2017-06-17] MEDS: CitaloPRAM (CeleXA) 20 MG TAB PO SCH (07:55)
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
[2017-06-17 09:20] VITALS: BP 122/61
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
[2017-06-17] MEDS: ACAMPROSATE CALCIUM 333 MG TABLET (CAMPRAL) PO SCH ×3 (11:38→21:03)
[2017-06-17 18:00] VITALS: BP 124/70
[2017-06-18] VITALS (7 sets, daily range): BP systolic 109–118; BP diastolic 54–80
[2017-06-18] MEDS: CitaloPRAM (CeleXA) 20 MG TAB PO SCH (08:02)
[2017-06-18] MEDS: ACAMPROSATE CALCIUM 333 MG TABLET (CAMPRAL) PO SCH ×3 (08:02→20:01)
[2017-06-18] MEDS: FOLIC ACID 1 MG TAB PO SCH (08:02)
[2017-06-18] MEDS: MULTIVITAMINS/MINERALS THERAP 1 TAB PO SCH (08:02)
[2017-06-18] MEDS: NICOTINE 21MG/24HR 1 EA TRANSDERMAL TD SCH (08:02)
--- NOTE | 2017-06-18 14:05 | MHIPNPDOC ---
[facility] Progress Note Progress Note DATE OF SERVICE: 06/18/17 HISTORY: day 4 of admission for SI/substance abuse. VITAL SIGNS: See below. NEW TEST RESULTS: na CURRENT MEDICATIONS: See below. MENTAL STATUS EXAMINATION: Patient is a 56-year old male, who is small framed, thin, pale complexion, reddish skin tone, dressed in hospital garb, pleasant and cooperative Speech: Is good. spontaneous, soft Language skills are good Thought processes including: goal directed Thought content: appropriate Abstract reasoning, and computation: good. Description of associations: good. Description of abnormal or psychotic thoughts: no psychotic symptoms observed, pt is not suicidal today Judgment: poor Insight: poor. Orientation: well oriented x 4 Recent and remote memory: adequate for interview purposes Attention span and concentration: good Fund of knowledge: Full Mood: depressed Affect: ambivalent DIAGNOSES: 1. Substance use disorder, chronic severe, alcoholism 2. Depressive disorder, substance induced ASSESSMENT:pt is having an uneventful withdrawal from Alcohol. He shows some signs of renewed interest in sobriety. He is willing to leave here tomorrow am and take a cab to [facility] to complete intake. Hopefully they will allow him to receive Vivitrol there and attending programming to support sobriety. He is tolerating Campral here and he can remain on the Campral until the Vivitrol takes effect. It is hoped this could be life changing for him. Hygiene is good. No behavior challenges. Eating well and sleeping well. Tolerating Celexa. States readiness for discharge and will follow up with [facility] for depression. MANAGEMENT PLAN: continue safety monitoring, enc group participation and socialization. Attended tx planning this a.m. pt plans to pursue HUD after discharge. Not able to attend TLS as no psychiatric dx. TIME SPENT: 25minutes. Vital Signs Vital Signs Date Time Temp Pulse Resp B/P (MAP) Pulse Ox O2 Delivery O2 Flow Rate FiO2 06/18/17 10:17 97.9 80 16 113/80 (91) 06/18/17 08:18 Room Air 06/14/17 15:52 95 Current Medications Current Medications Acamprosate (Campral) 666 mg TID PO Last administered on 06/18/17t 08:02; Start 06/17/17 at 09:00; Stop 07/17/17 at 08:59 Acetaminophen (Tylenol Tab) 650 mg Q6HP PRN PO HEADACHE or DISCOMFORT; Start at 14:00; Stop 07/14/17 at 13:59 Al Hydrox/Mg Hydrox/Simethicone (Mylanta) 30 ml Q4HP PRN PO HEARTBURN/ INDIGESTION; Start 06/14/17 at 14:00; Stop 07/14/17 at 13:59 Artificial Tears (Akwa Tears) 2 drop QIDP PRN OU DRY EYES Last administered on 06/16/17 20:58; Start 06/16/17 at 15:45; Stop 07/16/17 at 15:44 Citalopram Hydrobromide (CeleXA) 40 mg DAILY PO Last administered on 06/18/17 08:02; Start 06/15/17 at 09:00; Stop 07/15/17 at 08:59 Folic Acid (Folic Acid) 1 mg DAILY PO Last administered on 06/18/17 08:02; Start 06/15/17 at 09:00; Stop 07/15/17 at 08:59 Home Med (Med Rec Complete!) ASDIRECTED XX ; Start 06/14/17 at 14:30; Stop at 14:30; Status DC Lorazepam (Ativan) 2 mg ASDIRECTED PRN PO SEE PROTOCOL; Start 06/14/17 at 16:45 ; Stop 06/21/17 at 16:44 Magnesium Hydroxide (Milk Of Magnesia) 30 ml DAILYPRN PRN PO CONSTIPATION; Start 06/14/17 at 14:00; Stop 07/14/17 at 13:59 Multivitamins (Theragram-M) 1 tab DAILY PO Last administered on 06/18/17 08:02 ; Start 06/15/17 at 09:00; Stop 07/15/17 at 08:59 Nicotine (Nicoderm Cq 21mg) 1 patch DAILY TD Last administered on 06/18/17 08: 02; Start 06/15/17 at 09:00; Stop 07/15/17 at 08:59 Thiamine HCl (Thiamine HCl) 100 mg BID PO Last administered on 06/17/17 07:55 ; Start 06/15/17 at 09:00; Stop 06/17/17 at 09:01; Status DC Trazodone HCl (Desyrel) 50 mg QHSP PRN PO INSOMNIA; Start 06/14/17 at 14:00; Stop 07/14/17 at 13:59 Triamcinolone Acetonide (Kenalog 0.1% Cream) TO ABDOMEN BID PRN TOP RASH/ ITCHING Last administered on 06/15/17t 21:03; Start 06/15/17 at 09:00; Stop at 08:59 Allergies Coded Allergies: Fish Allergy (Unverified Allergy, Unknown, 03/15/17) Shellfish Allergy (Unverified Allergy, Unknown, 03/15/17) Elaine Gómez Jun 18, 2017 14:05
[2017-06-18] MEDS: POLYVINYL ALCOHOL OPHTH SOLN 15 ML(LIQUITEARS) OU PRN (21:21)
[2017-06-19 07:06] VITALS: BP 124/68
[2017-06-19] MEDS: FOLIC ACID 1 MG TAB PO SCH (08:25)
[2017-06-19] MEDS: CitaloPRAM (CeleXA) 20 MG TAB PO SCH (08:25)
[2017-06-19] MEDS: ACAMPROSATE CALCIUM 333 MG TABLET (CAMPRAL) PO SCH (08:25)
[2017-06-19] MEDS: MULTIVITAMINS/MINERALS THERAP 1 TAB PO SCH (08:25)
[2017-06-19] MEDS ORDERED: ACAM0.05 PO ×4 (08:26→09:40)
[2017-06-19] MEDS ORDERED: CELE20TA PO (08:26)
[2017-06-19] MEDS: NICOTINE 21MG/24HR 1 EA TRANSDERMAL TD SCH (08:26)
--- NOTE | 2017-06-19 09:10 | MHDSPDOC ---
[facility] Discharge Summary Discharge Summary DATE OF ADMISSION: Jun 14, 2017 at 13:56 DATE OF DISCHARGE: DISCHARGE DIAGNOSES: 1. . 2. .DUPLICATE/ OPENED IN ERROR REASON FOR ADMISSION: CONSULTANTS INVOLVED: TREATMENT AND PROGRESS ON THE UNIT : . HOSPITAL COURSE: DISCHARGE ASSESSMENT: MENTAL STATUS EXAMINATION ON DISCHARGE: Patient is a -year old male, who is . Speech is . Language skills are . Thought processes including: . Thought content: . Abstract reasoning, and computation: . Description of associations: . Description of abnormal or psychotic thoughts: . Judgment: . Insight: . Orientation to . Recent and remote memory: . Attention span and concentration: . Language: . Fund of knowledge: . Mood: . Affect: . MEDICATIONS ON DISCHARGE: - for . - for . - for . PLAN/FOLLOWUP ARRANGEMENTS: . The amount of time spent in the coordination of care for this patient was approximately minutes. Vital Signs/I&Os Vital Signs Date Time Temp Pulse Resp B/P (MAP) Pulse Ox O2 Delivery O2 Flow Rate FiO2 06/19/17 07:06 97.0 59 14 124/68 (86) Room Air 06/14/17 15:52 95 Medications Scheduled Acamprosate Calcium (Acamprosate Calcium Dr) 333 Mg Tab, 333 MG PO TID for WITHDRAWAL SYMPTOMS for 7 Days, #42 Acamprosate Calcium (Acamprosate Calcium Dr) 333 Mg Tab, 666 MG PO TID for WITHDRAWAL SYMPTOMS for 7 Days, #42 take 2 tabs 666mg three times a day Scheduled PRN Citalopram Hydrobromide (Celexa) 40 Mg Tab, 40 MG PO QAM PRN for qam for 7 Days , #7 Allergies Coded Allergies: Fish Allergy (Unverified Allergy, Unknown, 03/15/17) Shellfish Allergy (Unverified Allergy, Unknown, 03/15/17) Elaine Gómez Jun 19, 2017 09:10
[2017-06-19] MEDS ORDERED: CELE40TA PO (09:37)
--- NOTE | 2017-06-19 11:52 | MHDSPDOC ---
[facility] Discharge Summary Discharge Summary DATE OF ADMISSION: Jun 14, 2017 at 13:56 DATE OF DISCHARGE: Jun 19, 2017 at 09:45 DISCHARGE DIAGNOSES: 1. Substance use disorder 2. substance induced mood disorder 3. r/o Depressive disorder unspecified. REASON FOR ADMISSION: became suicidal while under the influence of alcohol and made threats regarding suicide. CONSULTANTS INVOLVED: na TREATMENT AND PROGRESS ON THE UNIT : pt admitted and monitored per [facility] protocol. His detox went very well. He had a very high bal of 0.432 on admission. Pt has chronic alcoholism and can't stay sober. He had had numerous treatment opportunities. Pt was pleasant and appropriate while on the unit. He was agreeable to treatment options for alcohol. He took Celexa which has been prescribed for him in the past. He accepted Campral willingly. HOSPITAL COURSE: pt was visible in milieu, was not attending groups but behaved appropriately during interactions with peers and staff. Discussed Vivitrol with pt as an option in helping him overcome his addiction to alcohol. He was agreeable and stated if he could get the medication at [facility] that he would like to do so. Our discharge planners contacted [facility] who were agreeable to having him return there for intake process and if they approved he would be eligible for the injection. Pt would remain on the Campral during this time. DISCHARGE ASSESSMENT: Pt was discharged with cab to [facility] to complete intake. Pt felt he could remain sober while taking Campral and until he received Vivitrol. It is hoped he can get the injection soon. Pt was in good spirits when he left. He is hopeful he can get his life on track again. He was given prescriptions for Celexa and Campral upon discharge. MENTAL STATUS EXAMINATION ON DISCHARGE: Patient is a 56-year old male, who is small framed, thin, pale complexion, reddish skin tone, dressed in hospital garb, pleasant and cooperative Speech: Is good. spontaneous, soft Language skills are good Thought processes including: goal directed Thought content: appropriate Abstract reasoning, and computation: good. Description of associations: good. Description of abnormal or psychotic thoughts: no psychotic symptoms observed, pt is not suicidal today Judgment: poor Insight: poor. Orientation: well oriented x 4 Recent and remote memory: adequate for interview purposes Attention span and concentration: good Fund of knowledge: Full Mood: depressed Affect: ambivalent MEDICATIONS ON DISCHARGE: - citalopram for depression - Campral for alcohol withdrawal. PLAN/FOLLOWUP ARRANGEMENTS: [facility] for Vivitrol and substance abuse treatment, [facility] for meds for depression. [facility] for housing along with DSS and HUD The amount of time spent in the coordination of care for this patient was approximately 30 minutes. Vital Signs/I&Os Vital Signs Date Time Temp Pulse Resp B/P (MAP) Pulse Ox O2 Delivery O2 Flow Rate FiO2 06/19/17 07:06 97.0 59 14 124/68 (86) Room Air 06/14/17 15:52 95 Medications Scheduled Acamprosate Calcium (Acamprosate Calcium Dr) 333 Mg Tab, 333 MG PO TID for WITHDRAWAL SYMPTOMS for 7 Days, #42 Acamprosate Calcium (Acamprosate Calcium Dr) 333 Mg Tab, 666 MG PO TID for WITHDRAWAL SYMPTOMS for 7 Days, #42 take 2 tabs 666mg three times a day Scheduled PRN Citalopram Hydrobromide (Celexa) 40 Mg Tab, 40 MG PO QAM PRN for qam for 7 Days , #7 Allergies Coded Allergies: Fish Allergy (Unverified Allergy, Unknown, 03/15/17) Shellfish Allergy (Unverified Allergy, Unknown, 03/15/17) Elaine Gómez Jun 19, 2017 11:52
== END 2017-06-19 09:45 | disposition home or self-care (01) | DRG 754 ==
LOC: M ED 17:24 → M ED INP 06-14 13:56 → M PSY 06-14 15:34
PROVIDERS: ADMIT Psychiatry & Neurology Child & Adolescent Psychiatry; ATTEND Psychiatry & Neurology Psychiatry
DX: F32.9 Major depressive disorder, single episode, unspecified (principal); F10.94 Alcohol use, unspecified with alcohol-induced mood disorder; R45.851 Suicidal ideations; L30.9 Dermatitis, unspecified; F17.210 Nicotine dependence, cigarettes, uncomplicated; F10.20 Alcohol dependence, uncomplicated; Z79.899 Other long term (current) drug therapy; Z91.013 Allergy to seafood; Z91.018 Allergy to other foods; Z90.49 Acquired absence of other specified parts of digestive tract

== ENCOUNTER 2020-01-09 09:18 | Emergency (ER) | payer OTHER ==
[~2020-01-09] VITALS: Ht 170.2 cm; Wt 81.9 kg
[~2020-01-09 09:18] MED LIST changes: +ACAM0.05 PO; +CELE20TA PO; +CELE40TA PO; +FOLI1TAB11 PO; -FOLI1TAB4 PO; -TRAZ-136 PO; +TRAZ-257 PO; +TRAZ1TAB10 PO; -TRAZO50TA PO
[2020-01-09] MEDS ORDERED: ACET-683 PO (09:39)
[2020-01-09] MEDS ORDERED: AUGMENTIN 875 MG TAB PO ONE (09:45)
[2020-01-09] MEDS ORDERED: AUGM875T28 PO (09:49)
[2020-01-09 10:11] LABS: BASO % 0.2 % (0.0-1.0); EOS # 0.1 10^3/uL (0.0-0.5); EOS % 0.8 % (0.0-3.0); HEMATOCRIT 40.1 % (42.0-52.0); HEMOGLOBIN 13.4 g/dl (13.5-17.5); LYMPH # 1.6 10^3/uL (1.5-5.0); LYMPH % 17.8 % (24.0-44.0); MEAN CORPUSCULAR HEMOGLOBIN 28.6 pg (27.0-33.0); MEAN CORPUSCULAR HGB CONC 33.4 g/dl (32.0-36.5); MEAN CORPUSCULAR VOLUME 85.5 fl (80.0-96.0); MONO # 0.9 10^3/uL (0.0-0.8); MONO % 10.2 % (0.0-5.0); NEUTROPHILS # 6.3 10^3/uL (1.5-8.5); NEUTROPHILS % 70.7 % (36.0-66.0); PLATELET COUNT, AUTOMATED 248 10^3/uL (150-450); RED BLOOD COUNT 4.69 10^6/uL (4.30-6.10); WHITE BLOOD COUNT 8.9 10^3/uL (4.0-10.0)
[2020-01-09 10:37] VITALS: BP 144/68
== END 2020-01-09 10:54 | disposition home or self-care (01) ==
LOC: M ED 09:18
DX: K04.7 Periapical abscess without sinus (principal); S02.5XXA Fracture of tooth (traumatic), initial encounter for closed fracture; X58.XXXA Exposure to other specified factors, initial encounter; Y92.89 Other specified places as the place of occurrence of the external cause; Z91.013 Allergy to seafood

== ENCOUNTER → 2020-03-22 | Outpatient (RCR) | payer OTHER ==
[~2020-03-22] MED LIST changes: +ACET-683 PO; +AUGM875T28 PO
== END ==
LOC: M PT 03-08 12:23
PROVIDERS: ATTEND Physician Assistant Medical
DX: Z51.89 Encounter for other specified aftercare (principal); M54.5 Low back pain